=== PATIENT | female | born 1940 | race Caucasian/White ===

== ENCOUNTER → 2024-05-20 | Outpatient (CLI) | payer MEDICARE ==
[~2024-05-20] MED LIST: ASPI-556 PO; CHOL100018 PO; IOHEXOL-350 75 ML VIAL IV ONE; LEVO5TAB29 PO; RABE-12 PO; ROSU5TAB PO
--- NOTE | 2024-05-20 10:39 | HMCIMG ---
CT ABDOMEN/PELVIS W/CONTRAST REASON: ABDO PAIN COMPARISON: None. TECHNIQUE: Images are obtained from lung bases to the symphysis pubis following IV contrast, 75 cc Omnipaque [id number]. FINDINGS: Lung bases are clear. There are no focal liver lesions. There are normal-appearing kidneys.. Spleen and pancreas appear unremarkable. There has been a previous cholecystectomy. There is moderate sigmoid diverticulosis without evidence of diverticulitis. Bowel loops appear otherwise unremarkable. There is no CT evidence of acute appendicitis. There is no evidence of free fluid or intraperitoneal air. There are no focal fluid collections. Aorta and retroperitoneum appear normal as do pelvic soft tissue structures. The anterior abdominal wall is intact. Osseous structures appear unremarkable. IMPRESSION: 1. Absent gallbladder. 2. Moderate sigmoid diverticulosis without evidence of diverticulitis. 3. Otherwise unremarkable postcontrast CT abdomen and pelvis. CT was performed with one or more following dose reduction techniques: automated exposure control, adjustment of the mA and kv according to patient's size, or use of a iterative reconstruction technique.
== END | disposition home or self-care (01) ==
LOC: RAH 07:47
PROVIDERS: ATTEND Nurse Practitioner Pediatrics
DX: K57.30 Diverticulosis of large intestine without perforation or abscess without bleeding (principal); R10.9 Unspecified abdominal pain; Z90.49 Acquired absence of other specified parts of digestive tract
CPT/HCPCS: 74177; Q9967

== ENCOUNTER → 2025-03-23 | Outpatient (CLI) | payer MEDICARE ==
[~2025-03-23] MED LIST changes: -IOHEXOL-350 75 ML VIAL IV ONE
--- NOTE | 2025-03-24 06:33 | HMCIMG ---
EXAM: MR Lumbar Spine Without Intravenous Contrast. CLINICAL HISTORY: Spondylosis with radiculopathy. TECHNIQUE: Magnetic resonance images of the lumbar spine in multiple planes. CONTRAST: None. COMPARISON: None. FINDINGS: For this examination, spinal levels were labeled assuming five [id number], lumbar-type vertebrae, with the inferior labeled L5. No acute fracture. Grade 1 anterolisthesis of L4 over L5 vertebral body by 2 mm. Lower lumbar facet arthropathy. Normal lordotic curvature. Normal vertebral body and disc heights. Normal marrow signal of the vertebrae. Conus medullaris terminates at the T12-L1 level. No abnormal epidural masses. The surrounding soft tissues are unremarkable. Individual spinal levels are described as follows: T12-L1: Mild disc bulge of 1 mm indenting the anterior thecal sac. No neural foraminal, lateral recess, or spinal canal stenosis. L1-L2: Mild disc bulge of 1 mm. No neural foraminal, lateral recess, or spinal canal stenosis. L2-L3: Mild disc bulge of 2 mm indenting the anterior thecal sac. Mild narrowing of both the lateral recesses and neuroforamina. No significant spinal canal compromise. L3-L4: Mild disc bulge of 2 mm indenting the anterior thecal sac. Mild narrowing of both the lateral recesses and neuroforamina. No significant spinal canal compromise. L4-L5: Mild disc bulge of 2 mm indenting the anterior thecal sac. Mild narrowing of both the lateral recesses and neuroforamina. No significant spinal canal compromise. L5-S1: No disc bulge or herniation. No neural foraminal, lateral recess, or spinal canal stenosis. IMPRESSION: 1. Normal marrow signal intensity. No acute fracture. Grade 1 anterolisthesis of L4 over L5 vertebral body by 2 mm. Lower lumbar facet arthropathy. 2. Mild lumbar spondylosis. Mild disc bulge at L2-L3, L3-L4, and L4-L5 levels, causing mild narrowing of both lateral recesses and neuroforamina. No spinal canal narrowing. /Ferris
== END | disposition home or self-care (01) ==
LOC: RAH 15:06
PROVIDERS: ATTEND Family Medicine
DX: M47.26 Other spondylosis with radiculopathy, lumbar region (principal); M43.16 Spondylolisthesis, lumbar region; M51.16 Intervertebral disc disorders with radiculopathy, lumbar region; M51.35 Other intervertebral disc degeneration, thoracolumbar region; M48.061 Spinal stenosis, lumbar region without neurogenic claudication
CPT/HCPCS: 72148

== ENCOUNTER → 2025-05-13 | Outpatient (CLI) | payer MEDICARE ==
--- NOTE | 2025-05-13 16:50 | HMCIMG ---
DOUBLE CONTRAST UPPER GI SERIES: Finding: The study was performed using provocative maneuvers After swallowing effervescent crystal and thick barium, there is no definite intrinsic or extrinsic lesion seen in the esophagus. The stomach is normal in size, shape, and configuration. The rugal folds appear to be thickened suggesting of gastritis.. There is suspicion with radiating rugal fold in the antrum suggesting a possible ulcer. The duodenal bulb, duodenal sweep, and upper jejunum appear to be normal. Fluoroscopy time: 0.9 minutes. IMPRESSION: Rugal fold appears to be very thickened suggesting of gastritis. From the study and possible ulceration in the antrum cannot be excluded for gastric ulcer.
== END | disposition home or self-care (01) ==
LOC: RAH 07:34
PROVIDERS: ATTEND Internal Medicine
DX: R12 Heartburn (principal); R14.1 Gas pain
CPT/HCPCS: 74240

== ENCOUNTER 2025-06-18 09:46 | Day surgery (SDC) | payer MEDICARE ==
[~2025-06-18] VITALS: Ht 152.4 cm; Wt 64.0 kg
[2025-06-18] VITALS (11 sets, daily range): BP systolic 117–139; BP diastolic 51–59; PULSE 60–79; RESP 14–19; TEMP 97.4–98.2
[2025-06-18] MEDS ORDERED: FAMOTIDINE 20MG VIAL IV ONE (10:28)
[2025-06-18] MEDS ORDERED: LEVO5TAB13 PO (10:41)
[2025-06-18] MEDS ORDERED: DOCU100C33 PO (10:41)
[2025-06-18] MEDS ORDERED: CYAN-35 PO (10:41)
[2025-06-18] MEDS ORDERED: FAMO20TA8 PO (10:41)
[2025-06-18] MEDS ORDERED: ROSU10TA98 PO (10:41)
[2025-06-18] MEDS ORDERED: OMEP40CA21 PO (10:41)
[2025-06-18] MEDS ORDERED: FOLI0.4T6 PO (10:41)
[2025-06-18] MEDS ORDERED: SUCR1TAB2 PO (10:41)
[2025-06-18] MEDS: 0.9%NACL 1000ML 1,000 ML IV ONE (12:49)
[2025-06-18] MEDS ORDERED: LIDOCAINE PF 100MG/5ML (2%) SYRINGE 5ML ONE (13:51)
== END 2025-06-18 15:15 | disposition home or self-care (01) ==
LOC: DAH 09:46 → ENDO 09:46
PROVIDERS: ATTEND Internal Medicine
DX: R93.3 Abnormal findings on diagnostic imaging of other parts of digestive tract (principal); K31.89 Other diseases of stomach and duodenum; K31.7 Polyp of stomach and duodenum; R91.8 Other nonspecific abnormal finding of lung field; R14.1 Gas pain; R12 Heartburn; J45.909 Unspecified asthma, uncomplicated; K64.0 First degree hemorrhoids; E78.5 Hyperlipidemia, unspecified; K21.9 Gastro-esophageal reflux disease without esophagitis; K57.90 Diverticulosis of intestine, part unspecified, without perforation or abscess without bleeding; Z88.0 Allergy status to penicillin; Z86.0100 Personal history of colon polyps, unspecified; Z90.49 Acquired absence of other specified parts of digestive tract; Z96.659 Presence of unspecified artificial knee joint; Z98.42 Cataract extraction status, left eye; Z80.0 Family history of malignant neoplasm of digestive organs; Z79.899 Other long term (current) drug therapy
CPT/HCPCS: 43251; 43239; J1308; J7030; J2003; J2704; A4620; A4215 ×2; A4223; A4222; A4221; A4663; A4606; J3490